=== PATIENT | male | born 1995 | race Caucasian/White ===

== ENCOUNTER 2018-10-18 19:48 | Emergency (ER) | payer OTHER ==
[~2018-10-18] VITALS: Ht 177.8 cm; Wt 74.8 kg
== END 2018-10-18 23:27 | disposition home or self-care (01) ==
LOC: ER 19:48
DX: K52.9 Noninfective gastroenteritis and colitis, unspecified (principal)

== ENCOUNTER 2020-04-07 10:07 | Emergency (ER) | payer OTHER ==
[~2020-04-07] VITALS: Ht 177.8 cm; Wt 81.6 kg
[2020-04-07] MEDS ORDERED: AMOXICILLIN500 M1 PO (13:16)
[2020-04-07] MEDS ORDERED: INTESTINEX680 M1 PO (13:16)
== END 2020-04-07 14:46 | disposition home or self-care (01) ==
LOC: ER 10:07
DX: J02.9 Acute pharyngitis, unspecified (principal); Z03.818 Encounter for observation for suspected exposure to other biological agents ruled out

== ENCOUNTER 2020-04-21 11:38 | Emergency (ER) | payer OTHER ==
[~2020-04-21] VITALS: Ht 180.3 cm; Wt 81.6 kg
[~2020-04-21 11:38] MED LIST: AMOXICILLIN500 M1 PO; INTESTINEX680 M1 PO
== END 2020-04-21 15:55 | disposition home or self-care (01) ==
LOC: ER 11:38
DX: N48.1 Balanitis (principal)